=== PATIENT | male | born 1935 | race Caucasian/White ===

== ENCOUNTER → 2017-03-23 | Outpatient (CLI) | payer OTHER ==
--- NOTE | 2017-03-23 17:18 | REP ---
Clinical: Prostate cancer with rising prostate specific antigen levels. Technique: PA and lateral. Findings: Mediastinum and cardiac silhouette are normal. Lung mckenzie demonstrate chronic age-related interstitial changes. No focal consolidation, effusion, or pneumothorax. Skeletal structures demonstrate osteopenia and degenerative changes. Impression: Chronic-appearing interstitial changes. No acute cardiopulmonary process appreciated. Signed by Abhishek Gunter MD 03/23/2017 05:09 P
[2017-03-23 19:00] LABS: CALCIUM LEVEL 8.6 MG/DL (8.8-10.2); CREATININE FOR GFR 1.74 MG/DL (0.70-1.30); GLOMERULAR FILTRATION RATE 40.2 (>35); POTASSIUM SERUM 4.1 MEQ/L (3.5-5.1)
== END ==
LOC: M SMT 13:59
PROVIDERS: ATTEND Nurse Practitioner Women's Health
DX: C61 Malignant neoplasm of prostate (principal); R97.21 Rising PSA following treatment for malignant neoplasm of prostate
CPT/HCPCS: 36415; 71020; 80048; G0463